=== PATIENT | female | born 1960 | race Caucasian/White ===

== ENCOUNTER 2018-02-13 12:10 | Emergency (ER) | payer OTHER ==
[2018-02-13] MEDS ORDERED: TORAdol 30 mg Injection IM ONE (13:04)
--- NOTE | 2018-02-13 13:05 | ERPHSYRPT ---
- History of Present Illness Time Seen by Provider: 02/13/18 12:59 Source: patient, family Exam Limitations: no limitations Patient Subjective Stated Complaint: PT states "I fell off the porch and my back hurts a little. I am legally blind and have ." Triage Nursing Assessment: Pt alert and oriented X 3, skin pwd. Pt ambulates with assistance, pt has tremors, uses hands to determine location. TP able to speak in clear full sentences. no apparent respiratory distress. Physician History: The patient is a 57-year-old female with her family complaining that she was using her mother's blood pressure cuff this morning and saw that her blood pressure was 0/30. Then later this morning she fell off a porch that was less than a foot off the ground. She called her primary medical doctor and went into see him. She was late for the appointment. After telling the medical office what was wrong, it was recommended she come to the ER. She has some low back pain now that is worse than usual. He did not hurt when she fell she has a past medical history of ankylosing spondylitis of the spine, hypertension, hypothyroidism, meningioma that was successfully resected, and blindness. Occurred: just prior to arrival Reason for Fall: lost balance, fell from height Injuries/Pain Location: no injury Loss of Consciousness: no loss of consciousness Severity of Pain-Max: mild Severity of Pain-Current: mild Modifying Factors: Improves With: nothing Associated Symptoms (Fall): denies symptoms Allergies/Adverse Reactions: carbamazepine [From Tegretol] Allergy (Verified 04/14/15 00:30) Itching Sulfa (Sulfonamide Antibiotics) Allergy (Verified 04/14/15 00:30) Itching Home Medications: Atenolol 25 mg PO DAILY 01/24/14 [History] Duloxetine HCl 60 mg PO DAILY 01/24/14 [History] Levothyroxine Sodium 50 Mcg [Synthroid 50 Mcg] 50 mcg PO DAILY 01/24/14 [ History] Oxycodone / APAP 10/325 mg [Oxycodone-Acetaminophen 10-325] 1 tab PO Q4- 6HPRN 01/24/14 [History] Hx Tetanus, Diphtheria Vaccination/Date Given: No Hx Influenza Vaccination/Date Given: No Hx Pneumococcal Vaccination/Date Given: No Immunizations Up to Date: Yes - Review of Systems Constitutional: No Fever, No Chills Eyes: No Symptoms Ears, Nose, & Throat: No Symptoms Respiratory: No Cough, No Dyspnea Cardiac: No Chest Pain, No Edema, No Syncope Abdominal/Gastrointestinal: No Abdominal Pain, No Nausea, No Vomiting, No Diarrhea Genitourinary Symptoms: No Dysuria Musculoskeletal: Back Pain, Fall Skin: No Rash Neurological: No Dizziness, No Focal Weakness, No Sensory Changes Psychological: No Symptoms Endocrine: No Symptoms Hematologic/Lymphatic: No Symptoms Immunological/Allergic: No Symptoms All Other Systems: Reviewed and Negative - Past Medical History Pertinent Past Medical History: Yes Neurological History: Seizures, Other Cardiac History: Arrhythmia Endocrine Medical History: Hypothyroidism Musculoskeletal History: Fibromyalgia, Other Psycho-Social History: Depression Other Medical History: BRAIN TUMOR, - Past Surgical History Past Surgical History: Yes Neuro Surgical History: Other Female Surgical History: Section Other Surgical History: BRAIN TUMOR REMOVED, TONSILS. - Social History Smoking Status: Light tobacco smoker How long have you smoked: couple yea Exposure to second hand smoke: No Drug Use: none Patient Lives Alone: No - Female History Hx Last Menstrual Period: no more Hx Now: No - Nursing Vital Signs Nursing Vital Signs: Initial Vital Signs Temperature 98.9 F 02/13/18 12:15 Pulse Rate 75 02/13/18 12:15 Respiratory Rate 16 02/13/18 12:15 Blood Pressure 120/84 02/13/18 12:15 O2 Sat by Pulse Oximetry 95 02/13/18 12:15 Pain Scale Pain Intensity 2 - Jenelle Coma Score Best Eye Response ([place]): (4) open spontaneously Best Verbal Response ([place]): (5) oriented Best Motor Response ([place]): (6) obeys commands [place] Total: 15 - Physical Exam General Appearance: no apparent distress, alert Head Injury: no evidence of injury Eye Exam: PERRL/EOMI ENT Exam: airway nml Neck Exam: normal inspection, No tenderness Respiratory/Chest Exam: normal breath sounds, No chest tenderness, No respiratory distress Cardiovascular Exam: normal heart sounds, regular rate/rhythm Gastrointestinal Exam: soft, No tenderness, No distention, No guarding, No ecchymosis Rectal Exam: not done Back Exam: vertebral tenderness (lumbar) Extremity Exam: normal inspection, normal range of motion, pelvis stable, No deformities Neurologic Exam: alert, oriented x 3, cooperative, sensation nml, No motor deficits Skin Exam: normal color, warm, dry SpO2 Interpretation: normal SpO2: 95 Oxygen Delivery: Room Air - Progress Progress: improved Counseled pt/family regarding: diagnosis - Departure Time of Disposition: 13:03 Departure Disposition: Home Clinical Impression: Fall, Low back pain Condition: Stable Critical Care Time: No Referrals: KIM GILL [Primary Care Provider] - Additional Instructions: You had a fall from you porch this morning. You know have an exacerbation of your chronic back pain. You were given Toradol 60 mg IM in the ER. Your blood pressure was excellent in the ER. Your blood pressure is 120/84. Follow-up with your primary medical doctor as needed.
[2018-02-13] MEDS ORDERED: TORAdol 30 mg Injection ONE (13:15)
[2018-02-13 13:39] VITALS: BP 110/72; PULSE 66; O2SAT 94
== END 2018-02-13 13:39 | disposition home or self-care (01) ==
LOC: ED 12:10
DX: M54.5 Low back pain (principal); W17.89XA Other fall from one level to another, initial encounter; Y92.008 Other place in unspecified non-institutional (private) residence as the place of occurrence of the external cause; Z79.899 Other long term (current) drug therapy
CPT/HCPCS: 96372; 99283; J1885

== ENCOUNTER 2021-07-19 13:31 | Inpatient (IN) | payer OTHER, MEDICARE ==
[2021-07-19] MEDS ORDERED: Hydromorphone 1 mg/ml Injection IV ONE (14:12)
[2021-07-19] MEDS ORDERED: Hydromorphone 1 mg/ml Injection ONE (14:13)
[2021-07-19 14:29] LABS: Absolute Neutrophil Ct (ANC) 7.04 (1.4-6.9); Basophil (Absolute #) 0.02 (0-0.4); Eosinophil % 0.4 % (0.00-5.0); Eosinophil (Absolute #) 0.05 (0-0.5); Hematocrit 41.9 % (35-47); Hemoglobin 12.9 gm/dl (12.0-16.0); Lymphocyte (Absolute #) 4.28 (1.0-4.6); Lymphocytes % 35.4 % (24.0-44.0); Mean Corpuscular Hemoglobin 32.3 pg (26-32); Mean Corpuscular Hgb Concent. 30.8 g/dl (32-36); Mean Platelet Volume 10.9 fl (7.5-11.0); Monocyte (Absolute #) 0.71 (0.0-1.3); Monocytes % 5.9 % (0.0-12.0); Neutrophil % 58.1 % (36.0-66.0); Platelet Count 243 K/mm3 (150-450); Red Blood Count 3.99 M/mm3 (4.1-5.4); Red Cell Distribution Width 12.2 % (11.5-14.0); White Blood Count 12.1 K/mm3 (4.0-10.5)
[2021-07-19 14:36] LABS: INR 1.2 (0.8-3.0); PROTIME 14.2 SECONDS (9.4-12.5)
[2021-07-19 14:42] LABS: ALBUMIN 3.5 g/dL (3.5-5.0); ALKALINE PHOSPHATASE 82 U/L (38-126); AMYLASE 40 U/L (30-110); ANION GAP 10.6 MEQ/L (5-15); BLOOD UREA NITROGEN 13 mg/dL (7-17); CHLORIDE 95 mmol/L (98-107); Calcium 9.4 mg/dL (8.4-10.2); Carbon Dioxide 36 mmol/L (22-30); Creatinine 1 0.63 mg/dL (0.52-1.04); EST GLOMERULAR FILTRATION RATE > 60.0 ML/MIN; Glucose 89 mg/dL (74-106); LIPASE 21 U/L (23-300); Potassium 4.5 mmol/L (3.5-5.1); SGOT/AST 15 U/L (14-36); SODIUM 137 mmol/L (137-145); Total Protein 8.2 g/dL (6.3-8.2)
[2021-07-19 14:48] LABS: SGPT/ALT 4 U/L (0-35)
--- NOTE | 2021-07-19 14:55 | XRAY ---
Indication: General pain. Comparison: February 12, 2011. Portable chest again demonstrates mild bibasilar discoid atelectasis/scarring, left base calcified granulomas, and right hemidiaphragm elevation. Remaining heart and upper lungs unremarkable. Bony thorax intact again with mild degenerative changes. Impression: Nonacute chest with chronic features.
--- NOTE | 2021-07-19 15:04 | ERPHSYRPT ---
- History of Present Illness Time Seen by Provider: 07/19/21 13:45 Source: family Exam Limitations: clinical condition, physical impairment Patient Subjective Stated Complaint: Pt daughter states "She lives with my father in law but he works allot and I came to visit and she looked really bad and I tried to get her into the doctor but she could not move without yelling a nd so I brought her here. She needs home health or alf or something." Triage Nursing Assessment: Pt presented alert and orietned x 3, skin pwd Pt blind, pt yells and screams when she is moved. Pt able to move all extremitites. Pt has parkinsons and has involuntary arm and leg movments. Physician History: Patient is a 60-year-old female who has had Parkinson symptoms for several years but much worse over the past 6 months or so. The daughter who does not live here saw her several months ago and when she saw her for Thanksgiving was shocked at the deterioration. The patient can no longer walk she cannot feed herself she is left alone at home frequently. The daughter had arranged a an appointment with Dr. Lew but when she arrived at his office she was unable to get the patient out of the car. The patient is rigid except for a resting tremor and screams with in pain with any movement. The patient was on Sinemet until it was stopped in May because of hallucinations. The the daughter does report that she was hallucinating and cognitive function was very poor prior to stopping the Sinemet. The patient is essentially blind. Timing/Duration: week(s) Severity: severe Allergies/Adverse Reactions: carbamazepine [From Tegretol] Allergy (Verified 04/14/15 00:30) Itching Sulfa (Sulfonamide Antibiotics) Allergy (Verified 04/14/15 00:30) Itching Home Medications: Duloxetine HCl 60 mg PO DAILY 01/24/14 [History] Levothyroxine Sodium 50 Mcg [Synthroid 50 Mcg] 50 mcg PO DAILY 01/24/14 [History] Diclofenac Sodium [Diclofenac Sodium ER] 75 mg PO BID 07/19/21 [History] Divalproex Sodium [Depakote ER] 500 mg PO TID 07/19/21 [History] Duloxetine HCl [Cymbalta] 60 mg PO DAILY 07/19/21 [History] Gabapentin 600 mg PO TID 07/19/21 [History] Propranolol HCl 40 mg PO BID 07/19/21 [History] levETIRAcetam [Levetiracetam ER] 750 mg PO BID 07/19/21 [History] Hx Tetanus, Diphtheria Vaccination/Date Given: No Hx Influenza Vaccination/Date Given: No Hx Pneumococcal Vaccination/Date Given: No Immunizations Up to Date: Yes Travel Risk - International Travel Have you traveled outside of the country in past 3 weeks: No - Coronavirus Screening Are you exhibiting any of the following symptoms?: No Close contact with a COVID-19 positive Pt in past 14-21 Days: No - Vaccine Status Have you recieved a Covid-19 vaccination: No - Past Medical History Pertinent Past Medical History: Yes Neurological History: Seizures, Other Cardiac History: Arrhythmia Endocrine Medical History: Hypothyroidism Musculoskeletal History: Fibromyalgia, Other Psycho-Social History: Depression Other Medical History: BRAIN TUMOR, - Past Surgical History Past Surgical History: Yes Neuro Surgical History: Other Female Surgical History: Section Other Surgical History: BRAIN TUMOR REMOVED, TONSILS. - Social History Smoking Status: Light tobacco smoker How long have you smoked: couple yea Exposure to second hand smoke: No Drug Use: none Patient Lives Alone: No - Nursing Vital Signs Nursing Vital Signs: Initial Vital Signs Temperature 97.2 F 07/19/21 13:32 Pulse Rate 60 07/19/21 13:32 Respiratory Rate 20 07/19/21 13:32 O2 Sat by Pulse Oximetry 95 07/19/21 13:32 Pain Scale Pain Intensity 4 - Physical Exam General Appearance: moderate distress Eye Exam: PERRL/EOMI, eyes nml inspection Ears, Nose, Throat Exam: normal ENT inspection, TMs normal, pharynx normal, moist mucous membranes Neck Exam: limited range of motion, No full range of motion Respiratory Exam: normal breath sounds, airway intact Cardiovascular Exam: regular rate/rhythm, normal heart sounds Gastrointestinal/Abdomen Exam: soft, normal bowel sounds, tenderness, No guarding, No rebound Back Exam: other (Pain with any attempts to move her even to set her up for a chest x-ray) Extremity Exam: limited range of motion, other (Patient is essentially rigid any movement in the elbows there is palpable cogwheel rigidity) Neurologic Exam: motor deficits (Marked muscle rigidity), confusion, slurred speech, No nml station & gait SpO2: 98 - Course Nursing assessment & vital signs reviewed: Yes - Radiology Exams Chest X-ray Interpretation: Reviewed by me Ordered Tests: Active Orders 24 hr Category Date Time Status EKG-ER Only STAT Care 07/19/21 13:50 Active IV Insertion STAT Care 07/19/21 13:50 Active NPO (ED) STAT Care 07/19/21 13:51 Active CHEST 1 VIEW (PORTABLE) Stat Exams 07/19/21 13:51 Completed AMYLASE Stat Lab 07/19/21 14:15 Completed BLOOD CULTURE Stat Lab 07/19/21 14:20 Received CBC W DIFF Stat Lab 07/19/21 14:15 Completed CMP Stat Lab 07/19/21 14:15 Completed CULTURE,URINE Stat Lab 07/19/21 13:53 Ordered LIPASE Stat Lab 07/19/21 14:15 Completed Lactic Acid Stat Lab 07/19/21 14:28 Completed PROTIME WITH INR Stat Lab 07/19/21 14:15 Completed TROPONIN Q3H Lab 07/19/21 14:15 Completed TROPONIN Q3H Lab 07/19/21 17:00 Ordered TROPONIN Q3H Lab 07/19/21 20:00 Ordered TROPONIN Q3H Lab 07/19/21 23:00 Ordered TROPONIN Q3H Lab 07/20/21 02:00 Ordered UA W/RFX UR CULTURE Stat Lab 07/19/21 13:51 Ordered Medication Summary Discontinued Medications Generic Name Dose Route Start Last Admin Trade Name Freq PRN Reason Stop Dose Admin Hydromorphone HCl 1 mg 07/19/21 14:12 07/19/21 14:13 Hydromorphone 1 Mg/1ml Inj 1 Mg/Ml Syringe IV 07/19/21 14:13 1 mg STAT ONE Administration Hydromorphone HCl Confirm 07/19/21 14:13 Hydromorphone 1 Mg/1ml Inj 1 Mg/Ml Syringe Administered 07/19/21 14:14 Dose 1 mg .ROUTE .STK-MED ONE Lab/Rad Data: Laboratory Result Diagrams 07/19/21 14:15 07/19/21 14:15 Laboratory Results 07/19/21 07/19/21 07/19/21 Range/Units 14:28 14:15 14:15 WBC (4.0-10.5) K/mm3 RBC (4.1-5.4) M/mm3 Hgb (12.0-16.0) gm/dl Hct (35-47) % MCV (78-100) fl MCH (26-32) pg MCHC (32-36) g/dl RDW (11.5-14.0) % Plt Count (150-450) K/mm3 MPV (7.5-11.0) fl Gran % (36.0-66.0) % Eos # (Auto) (0-0.5) Absolute Lymphs (auto) (1.0-4.6) Absolute Monos (auto) (0.0-1.3) Lymphocytes % (24.0-44.0) % Monocytes % (0.0-12.0) % Eosinophils % (0.00-5.0) % Basophils % (0.0-0.4) % Absolute Granulocytes (1.4-6.9) Basophils # (0-0.4) PT 14.2 H (9.4-12.5) SECONDS INR 1.20 (0.8-3.0) Sodium (137-145) mmol/L Potassium (3.5-5.1) mmol/L Chloride (98-107) mmol/L Carbon Dioxide (22-30) mmol/L Anion Gap (5-15) MEQ/L BUN (7-17) mg/dL Creatinine (0.52-1.04) mg/dL Estimated GFR ML/MIN Glucose (74-106) mg/dL Lactic Acid 1.7 (0.4-2.0) Calcium (8.4-10.2) mg/dL Total Bilirubin (0.2-1.3) mg/dL AST (14-36) U/L ALT (0-35) U/L Alkaline Phosphatase (38-126) U/L Troponin I < 0.012 (0.000-0.034) ng/mL Serum Total Protein (6.3-8.2) g/dL Albumin (3.5-5.0) g/dL Amylase (30-110) U/L Lipase (23-300) U/L 07/19/21 07/19/21 Range/Units 14:15 14:15 WBC 12.1 H (4.0-10.5) K/mm3 RBC 3.99 L (4.1-5.4) M/mm3 Hgb 12.9 (12.0-16.0) gm/dl Hct 41.9 (35-47) % MCV 105.0 H (78-100) fl MCH 32.3 H (26-32) pg MCHC 30.8 L (32-36) g/dl RDW 12.2 (11.5-14.0) % Plt Count 243 (150-450) K/mm3 MPV 10.9 (7.5-11.0) fl Gran % 58.1 (36.0-66.0) % Eos # (Auto) 0.05 (0-0.5) Absolute Lymphs (auto) 4.28 (1.0-4.6) Absolute Monos (auto) 0.71 (0.0-1.3) Lymphocytes % 35.4 (24.0-44.0) % Monocytes % 5.9 (0.0-12.0) % Eosinophils % 0.4 (0.00-5.0) % Basophils % 0.2 (0.0-0.4) % Absolute Granulocytes 7.04 H (1.4-6.9) Basophils # 0.02 (0-0.4) PT (9.4-12.5) SECONDS INR (0.8-3.0) Sodium 137 (137-145) mmol/L Potassium 4.5 (3.5-5.1) mmol/L Chloride 95 L (98-107) mmol/L Carbon Dioxide 36 H (22-30) mmol/L Anion Gap 10.6 (5-15) MEQ/L BUN 13 (7-17) mg/dL Creatinine 0.63 (0.52-1.04) mg/dL Estimated GFR > 60.0 ML/MIN Glucose 89 (74-106) mg/dL Lactic Acid (0.4-2.0) Calcium 9.4 (8.4-10.2) mg/dL Total Bilirubin 0.90 (0.2-1.3) mg/dL AST 15 (14-36) U/L ALT 4 (0-35) U/L Alkaline Phosphatase 82 (38-126) U/L Troponin I (0.000-0.034) ng/mL Serum Total Protein 8.2 (6.3-8.2) g/dL Albumin 3.5 (3.5-5.0) g/dL Amylase 40 (30-110) U/L Lipase 21 L (23-300) U/L - Progress Progress: unchanged Discussed with DrCurt: Rony Will see patient in: hospital (observation) - Departure Departure Disposition: Observation Clinical Impression: Anti-Parkinsonism drug causing adverse effect in therapeutic use, Parkinsonism Condition: Fair Critical Care Time: No Referrals: ANURADHA VIEIRA PRACTICE COORDINATOR [Primary Care Provider] - Follow up/PCP as directed
[2021-07-19 16:12] LABS: Appearance SLIGHTLY CLOUDY (CLEAR); Bacteria MANY /HPF (NEGATIVE); Bilirubin SMALL (NEGATIVE); Blood NEGATIVE Ery/ul (0-5); Epithelial Cells RARE /HPF (FEW); Glucose NEGATIVE (NEGATIVE); Ketones TRACE (NEGATIVE); Leukocyte Esterase SMALL (NEGATIVE); Mucus MANY /HPF (NEGATIVE); Nitrite POSITIVE (NEGATIVE); Protein,Urine Dip 100 (Negative); Specific Gravity 1.026 (1.005-1.025); Urobilinogen 4 mg/dL (0-1)
[2021-07-19 16:43] LABS: INFLUENZA A NEGATIVE (NEGATIVE); INFLUENZA B NEGATIVE (NEGATIVE); RESPIRATORY SYNCTIAL VIRUS NEGATIVE (Negative); SARS-CoV-2 Xpert Express NEGATIVE (NEGATIVE)
[2021-07-19] MEDS ORDERED: ROCEPHIN 1 Gm-D5w 50 ml Bag** 1 G/50 ML IVPB IV STA (17:47)
[2021-07-19] MEDS ORDERED: ROCEPHIN 1 Gm-D5w 50 ml Bag** 1 G/50 ML IVPB IV ONE (17:49)
[2021-07-19] MEDS: Hydromorphone 1 mg/ml Injection IV PRN ×2 (18:29→22:37)
[2021-07-19] MEDS: Sodium Chloride 0.9% 1000 ML 1,000 ML IV SCH (21:51)
[2021-07-19] MEDS: NEURONTIN 300 MG PO SCH (22:34)
[2021-07-19] MEDS: Inderal 20 MG PO SCH (22:34)
[2021-07-19] MEDS: Depakote EXTENDED RELEASE 250 MG PO SCH (22:34)
[2021-07-19] MEDS: KEPPRA 500 MG PO SCH (22:35)
[2021-07-20] MEDS: Sodium Chloride 0.9% 1000 ML 1,000 ML IV SCH ×4 (02:50→21:02)
[2021-07-20] MEDS ORDERED: SYNTHROID 100 MCG ONE (03:25)
[2021-07-20] MEDS: Hydromorphone 1 mg/ml Injection IV PRN (05:15)
[2021-07-20] MEDS ORDERED: SYNTHROID 100 MCG PO SCH (07:00)
[2021-07-20 07:52] LABS: Hematocrit 35.4 % (35-47); Hemoglobin 10.6 gm/dl (12.0-16.0); Mean Corpuscular Hemoglobin 31.7 pg (26-32); Mean Corpuscular Hgb Concent. 29.9 g/dl (32-36); Mean Platelet Volume 10.9 fl (7.5-11.0); Platelet Count 207 K/mm3 (150-450); Red Blood Count 3.34 M/mm3 (4.1-5.4); Red Cell Distribution Width 12.4 % (11.5-14.0); White Blood Count 10.9 K/mm3 (4.0-10.5)
[2021-07-20 08:00] LABS: ALBUMIN 2.9 g/dL (3.5-5.0); ALKALINE PHOSPHATASE 67 U/L (38-126); BLOOD UREA NITROGEN 11 mg/dL (7-17); CHLORIDE 100 mmol/L (98-107); Carbon Dioxide 32 mmol/L (22-30); EST GLOMERULAR FILTRATION RATE > 60.0 ML/MIN; Glucose 84 mg/dL (74-106); Potassium 3.5 mmol/L (3.5-5.1); SGOT/AST 14 U/L (14-36); SODIUM 136 mmol/L (137-145); Total Protein 6.8 g/dL (6.3-8.2)
[2021-07-20] MEDS ORDERED: Sodium Chloride 0.9% 500 ML 500 ML IV ONE (08:40)
[2021-07-20] MEDS: Depakote EXTENDED RELEASE 250 MG PO SCH (08:50)
[2021-07-20] MEDS: KEPPRA 500 MG PO SCH (08:50)
[2021-07-20] MEDS: Inderal 20 MG PO SCH (08:50)
[2021-07-20] MEDS: NEURONTIN 300 MG PO SCH (08:50)
[2021-07-20 09:34] LABS: SGPT/ALT < 4 U/L (0-35)
[2021-07-20] MEDS: Levofloxacin 500MG/100ML D5W 500 MG/100 ML BAG IV SCH (09:38)
[2021-07-20] MEDS ORDERED: Cymbalta 30 MG Capsule PO SCH (10:00)
[2021-07-20] MEDS ORDERED: ROCEPHIN 1 Gm-D5w 50 ml Bag** 1 G/50 ML IVPB IV SCH (10:00)
[2021-07-21] MEDS: Sodium Chloride 0.9% 1000 ML 1,000 ML IV SCH ×2 (06:38→17:43)
[2021-07-21] MEDS: Levofloxacin 500MG/100ML D5W 500 MG/100 ML BAG IV SCH (09:24)
[2021-07-21] MEDS: KEPPRA 500 MG PO SCH ×2 (11:24→22:20)
--- NOTE | 2021-07-21 12:05 | PCM.NOTE ---
Date and Time: 07/21/21 1203 Subjective Assessment: Neurology consult appreciated. will follow recommendation - Review of Systems Constitutional: No Fever, No Chills Eyes: No Symptoms Ears, Nose, & Throat: No Symptoms Respiratory: No Cough, No Short Of Breath Cardiac: No Chest Pain, No Edema, No Syncope Abdominal/Gastrointestinal: No Abdominal Pain, No Nausea, No Vomiting, No Diarrhea Genitourinary Symptoms: No Dysuria Musculoskeletal: No Back Pain, No Neck Pain Skin: No Rash Neurological: Tremors, No Dizziness, No Focal Weakness, No Sensory Changes Psychological: Anxiety, Hallucinations Endocrine: No Symptoms Hematologic/Lymphatic: No Symptoms Immunological/Allergic: No Symptoms Objective Exam General Appearance: mild distress, alert Neurologic Exam: alert, oriented x 3, cooperative, normal mood/affect, sensation nml, No motor deficits Skin Exam: normal color, warm, dry Wound Assessment: Skin/Wound Assessment Wound/Incision Assessment Start: 07/19/21 18:52 Text: Status: Active Freq: Q6H Protocol: Document 07/21/21 07:52 (Rec: 07/21/21 08:05 [id number]) Wound/Incision Assessment Posterior Buttock Wound Assessment Shift Assessment Wound Type shearing noted to left buttock Drainage Amount None Comment barrier cream PRN Wound Photo Photo Taken Yes Comment: see chart Eye Exam: PERRL, EOMI, eyes nml inspection Ears, Nose, Throat Exam: normal ENT inspection, pharynx normal, moist mucous membranes Neck Exam: normal inspection, non-tender, supple, full range of motion Respiratory Exam: normal breath sounds, lungs clear, No respiratory distress Cardiovascular Exam: regular rate/rhythm, normal heart sounds Gastrointestinal/Abdomen Exam: soft, No tenderness, No mass Extremity Exam: normal inspection, normal range of motion Back Exam: normal inspection, normal range of motion, No CVA tenderness, No vertebral tenderness Pelvic Exam: deferred Rectal Exam: deferred OBJECTIVE DATA Vital Signs: Vital Signs - 24 hr Temp Pulse Resp BP Pulse Ox 07/21/21 08:00 97.7 F 86 18 127/67 92 L 07/21/21 04:15 98.6 F 88 18 137/66 92 L 07/20/21 23:39 100.2 F 91 H 19 133/54 94 L 07/20/21 20:54 91 L 07/20/21 20:00 97.9 F 85 17 90/51 93 L 07/20/21 16:00 97.5 F 126/100 81 L Pain Assessment - Last Documented Pain Intensity 0 Pain Scale Used 0-10 Pain Scale Intake and Output: Intake & Output 07/19/21 07/20/21 07/21/21 07/22/21 11:59 11:59 11:59 11:59 Intake Total 2170 4166 Output Total 50 1800 Balance 2120 2366 Weight 160 kg 67.2 kg Lab Results: Lab Results-Last 24 Hours 07/20/21 07/20/21 07/20/21 Range/Units 13:14 17:11 21:49 POC Glucometer 74 72 L 95 (74 to 106) mg/dL 07/21/21 07/21/21 Range/Units 07:06 11:47 POC Glucometer 88 94 (74 to 106) mg/dL Radiology Exams: Radiology Procedures Category Date Time Status CHEST 1 VIEW (PORTABLE) Stat Exams 07/19/21 13:51 Completed Multi-Disciplinary Progress Notes: Multi-Disciplinary Progress Notes 07/20/21 13:55 Case Management Note by Jane Whiteside HAD LONG DISCUSSION IN ER WITH DAUGHTER, ENDER CORRAL, 07/19/21. SHE REPORTED PATIENT'S TAKES CARE OF PATIENT ADONIS BUT HE HAS TO WORK DURING THE DAY AND SHE IS NO LONGER ABLE TO CARE FOR HERSELF. ENDER REPORTED SHE FELT LIKE THIS WAS JUST DUE TO PROGRESSION OF PATIENT'S PARKINSON. OPTIONS FOR CARE DISCUSSED. NOTIFIED THAT D/T PATIENT UNABLE TO PARTICIPATE IN THERAPY AND WOULD BE CONSIDERED MORE GROUP HOME CARE THAT NH PLACEMENT WOULD BE PRIVATE PAY. WE ALSO DISCUSSED HHC VS HOSPICE. ENDER WAS MOST INTERESTED IN HOSPICE AT HOME WITH PRIVATE PAY [facility] WHILE IS AT WORK. TO GET MORE INFORMATION ELIER FROM [facility] GIVEN ENDERS NUMBER SO THEY CAN DISCUSS WHAT HOSPICE COULD PROVIDE AND HELP WITH ADDITIONAL RESOURCES. ENEDR UNDERSTOOD THAT TALKING WITH ELIER WAS ESSENTIALLY JUST FOR INFORMATION AND EVEN AFTER TALKING WITH ELIER FAMILY HAS COMPLETE PROVIDER PREFERENCE CHOICE. ENDER NOTED THAT SHE KNOWS HER STEP FATHER, PATIENT'S , WOULD NEED TO MAKE THOSE DECISIONS BUT FEELS HE WOULD WANT HER GUIDANCE AND ASSISTANCE. S/W PATIENT'S THIS AM. TELE NEURO CONSULTED THIS AM PHYSICIN FEELS A MEDICATION COULD BE CONTRIBUTING TO PATIENT'S CONDITION. FAMILY HAS A MTG WITH [facility] LATER THIS AFTERNOON TO DISCUSS IF HOSPICE IS WHAT THE FAMILY WOULD LIKE. PATIENT WILL NEED [facility] SET UP PRIOR TO DC. WILL REASSESS PLAN FOR DC ON FRIDAY AFTER NEURO CONSULT. WILL SEND OFFICIAL ORDER TO HOSPICE OF FAMILY CHOICE AT THAT TIME IF THAT CONTINUES TO BE THE PLAN Initialized on 07/20/21 13:55 - END OF NOTE Assessment/Plan (1) Anti-Parkinsonism drug causing adverse effect in therapeutic use Current Visit: Yes Status: Acute Qualifiers: Encounter type: subsequent encounter Qualified Code(s): T42.8X5D - Adverse effect of antiparkinsonism drugs and other central muscle-tone depressants, subsequent encounter Code(s): T42.8X5A - ADVERSE EFFECT OF ANTIPARKNS DRUG/CENTR MUSC-TONE DEPR, INIT (2) Parkinsonism Current Visit: Yes Status: Acute Qualifiers: Parkinsonism type: Parkinson's disease Qualified Code(s): G20 - Parkinson's disease Code(s): G20 - PARKINSON'S DISEASE
--- NOTE | 2021-07-22 08:29 | PCM.NOTE ---
Date and Time: 07/22/21827 Subjective Assessment: doing better - Review of Systems Constitutional: No Fever, No Chills Eyes: No Symptoms Ears, Nose, & Throat: No Symptoms Respiratory: No Cough, No Short Of Breath Cardiac: No Chest Pain, No Edema, No Syncope Abdominal/Gastrointestinal: No Abdominal Pain, No Nausea, No Vomiting, No Diarrhea Genitourinary Symptoms: No Dysuria Musculoskeletal: No Back Pain, No Neck Pain Skin: No Rash Neurological: Tremors, No Dizziness, No Focal Weakness, No Sensory Changes Psychological: No Symptoms Endocrine: No Symptoms Hematologic/Lymphatic: No Symptoms Immunological/Allergic: No Symptoms Objective Exam General Appearance: no apparent distress, alert Neurologic Exam: alert, oriented x 3, cooperative, normal mood/affect, nml cerebellar function, sensation nml, No motor deficits Skin Exam: normal color, warm, dry Wound Assessment: Skin/Wound Assessment Wound/Incision Assessment Start: 07/19/21 18:52 Text: Status: Active Freq: Q6H Protocol: Document 07/22/21 02:00 PATRICIA (Rec: 07/22/21 03:56 RG [id number]) Wound/Incision Assessment Right Medial Back Wound Assessment Shift Assessment Wound Type Skin Tear Wound Stage Non Pressure Wound Drainage Amount None Drainage Odor None/Absent Wound Bed Greatest Portion Red (Granulation) Comment skin shear to medial right back, barrier cream applied Posterior Buttock Wound Assessment Shift Assessment Wound Type shear area r hip area. Drainage Amount None Drainage Odor None/Absent General Appearance Open to air Comment barrier cream PRN Wound Photo Photo Taken Yes Comment: see chart Eye Exam: PERRL, EOMI, eyes nml inspection Ears, Nose, Throat Exam: normal ENT inspection, pharynx normal, moist mucous membranes Neck Exam: normal inspection, non-tender, supple, full range of motion Respiratory Exam: normal breath sounds, lungs clear, No respiratory distress Cardiovascular Exam: regular rate/rhythm, normal heart sounds Gastrointestinal/Abdomen Exam: soft, No tenderness, No mass Extremity Exam: normal inspection, normal range of motion Back Exam: normal inspection, normal range of motion, No CVA tenderness, No vertebral tenderness Pelvic Exam: deferred Rectal Exam: deferred OBJECTIVE DATA Vital Signs: Vital Signs - 24 hr Temp Pulse Resp BP Pulse Ox 07/22/21 04:15 98.0 F 76 18 127/57 94 L 07/22/21 00:00 98.8 F 84 20 136/63 93 L 07/21/21 20:00 99.5 F 87 16 124/84 94 L 07/21/21 18:27 92 L 07/21/21 16:00 98.6 F 105 H 18 127/66 94 L 07/21/21 14:27 92 L 07/21/21 12:00 99.3 F 99 H 20 128/66 92 L Pain Assessment - Last Documented Pain Intensity 0 Pain Scale Used 0-10 Pain Scale Intake and Output: Intake & Output 07/19/21 07/20/21 07/21/21 07/22/21 11:59 11:59 11:59 11:59 Intake Total 2170 4166 2500 Output Total 50 1800 1625 Balance 2120 2366 875 Weight 160 kg 67.2 kg 67.1 kg Lab Results: Lab Results-Last 24 Hours 07/21/21 Range/Units 11:47 POC Glucometer 94 (74 to 106) mg/dL Assessment/Plan (1) Anti-Parkinsonism drug causing adverse effect in therapeutic use Current Visit: Yes Status: Acute Qualifiers: Encounter type: subsequent encounter Qualified Code(s): T42.8X5D - Adverse effect of antiparkinsonism drugs and other central muscle-tone depressants, subsequent encounter Code(s): T42.8X5A - ADVERSE EFFECT OF ANTIPARKNS DRUG/CENTR MUSC-TONE DEPR, INIT (2) Parkinsonism Current Visit: Yes Status: Acute Qualifiers: Parkinsonism type: Parkinson's disease Qualified Code(s): G20 - Parkinson's disease Code(s): G20 - PARKINSON'S DISEASE
[2021-07-22 09:08] VITALS: BP 112/66; PULSE 74; O2SAT 93
[2021-07-22] MEDS: Levofloxacin 500MG/100ML D5W 500 MG/100 ML BAG IV SCH (09:17)
[2021-07-22] MEDS: KEPPRA 500 MG PO SCH (09:17)
--- NOTE | 2021-07-22 15:20 | PCM.DS ---
Discharge Summary Date of Admission: 07/20/21 07:00 Admitting Physician: JERAMY MONTALVO Consults: Consults on Case 07/20/21 08:34 Consult Neurology ROUTINE Primary Care Provider: ANURADHA VIEIRA Allergies Allergies carbamazepine [From Tegretol] Allergy (Verified 04/14/15 00:30) Itching Sulfa (Sulfonamide Antibiotics) Allergy (Verified 04/14/15 00:30) Itching Hospital Summary - Hospital Course Hospital Course: Chief Complaint Diagnosis parkinsons Allergies Allergy/AdvReac Type Severity Reaction Status Date / Time carbamazepine [From Tegretol] Allergy Itching Verified 04/14/15 00:30 Sulfa (Sulfonamide Allergy Itching Verified 04/14/15 00:30 Antibiotics) Vital Signs (Last 24 hours) Temp Pulse Resp BP Pulse Ox 07/22/21 08:00 98.4 F 74 16 112/66 93 L 07/22/21 04:15 98.0 F 76 18 127/57 94 L 07/22/21 00:00 98.8 F 84 20 136/63 93 L 07/21/21 20:00 99.5 F 87 16 124/84 94 L 07/21/21 18:27 92 L 07/21/21 16:00 98.6 F 105 H 18 127/66 94 L Home Medications Medication Instructions Recorded Confirmed Last Taken Type Cholecalciferol (Vitamin D3) 50 mcg PO DAILY 07/19/21 07/19/21 07/19/21 History [Vitamin D3] Diclofenac Sodium [Diclofenac 75 mg PO BID 07/19/21 07/19/21 07/19/21 History Sodium ER] Divalproex Sodium [Depakote ER] 500 mg PO TID 07/19/21 07/19/21 07/19/21 History Duloxetine HCl [Cymbalta] 60 mg PO DAILY 07/19/21 07/19/21 07/19/21 History Propranolol HCl 40 mg PO BID 07/19/21 07/19/21 07/19/21 History levETIRAcetam [Levetiracetam ER] 750 mg PO BID 07/19/21 07/19/21 07/19/21 Hi story Levofloxacin [Levofloxacin 250 mg PO DAILY 5 Days #5 tab 07/22/21 Unknown Rx 250MG Tablet] Current Medications Discontinued Medications Generic Name Dose Route Start Last Admin Trade Name Freq PRN Reason Stop Dose Admin Divalproex Sodium 500 mg 07/19/21 22:00 07/20/21 08:50 Divalproex Sodium 250 Mg Tab Extended Release PO 08/18/21 21:59 Not Given TID SALINA Duloxetine HCl 60 mg 07/20/21 10:00 07/20/21 08:50 Duloxetine Hcl 30 Mg Cap PO 08/19/21 09:59 Not Given QAM SALINA Gabapentin 600 mg 07/19/21 22:00 07/20/21 08:50 Gabapentin 300 Mg Capsule PO 08/18/21 21:59 Not Given TID SALINA Hydromorphone HCl 1 mg 07/19/21 14:12 07/19/21 14:13 Hydromorphone 1 Mg/1ml Inj 1 Mg/Ml Syringe IV 07/19/21 14:13 1 mg STAT ONE Administration Hydromorphone HCl Confirm 07/19/21 14:13 Hydromorphone 1 Mg/1ml Inj 1 Mg/Ml Syringe Administered 07/19/21 14:14 Dose 1 mg .ROUTE .STK-MED ONE Hydromorphone HCl 1 mg 07/19/21 15:31 07/20/21 05:15 Hydromorphone 1 Mg/1ml Inj 1 Mg/Ml Syringe IV 07/24/21 15:30 1 mg Q4H PRN PRN Administration PAIN Sodium Chloride 1,000 mls @ 100 mls/hr 07/19/21 15:45 07/21/21 17:43 Sodium Chloride 0.9% 1000 Ml IV 08/18/21 15:44 100 mls/hr .Q10H SALINA Administration Ceftriaxone Sodium/Dextrose 1 g in 50 mls @ 100 mls/hr 07/19/21 17:47 07/19/21 17:50 Rocephin 1 Gm-D5w 50 Ml Bag IV 07/19/21 18:16 100 ml/hr STAT STA 100 mls/hr Administration Ceftriaxone Sodium/Dextrose 1 g in 50 mls @ 100 mls/hr 07/20/21 10:00 Rocephin 1 Gm-D5w 50 Ml Bag IV 07/23/21 09:59 Q24H10 SALINA Ceftriaxone Sodium/Dextrose Confirm 07/19/21 17:49 Rocephin 1 Gm-D5w 50 Ml Bag Administered 07/19/21 17:50 Dose 1 g in 50 mls @ ud IV .STK-MED ONE Sodium Chloride 500 mls @ 500 mls/hr 07/20/21 08:40 07/20/21 08:49 Sodium Chloride 0.9% 500 Ml IV 07/20/21 09:39 500 mls/hr .Q1H ONE Administration Levofloxacin/Dextrose 500 mg in 100 mls @ 100 mls/hr 07/20/21 10:00 07/22/21 09:17 Levofloxacin 500mg/100ml D5w IV 08/19/21 09:59 100 mls/hr Q24H10 SALINA Administration Levetiracetam 750 mg 07/19/21 22:00 07/20/21 08:50 Levetiracetam 500 Mg Tablet PO 08/18/21 21:59 Not Given BID SALINA Levetiracetam 500 mg 07/21/21 11:00 07/22/21 09:17 Levetiracetam 500 Mg Tablet PO 08/20/21 10:59 500 mg BID SALINA Administration Levothyroxine Sodium 100 mcg 07/20/21 07:00 07/20/21 06:10 Levothyroxine Sodium 100 Mcg Tablet PO 08/19/21 06:59 Not Given DAILY@0700 SALINA Levothyroxine Sodium Confirm 07/20/21 03:25 Levothyroxine Sodium 100 Mcg Tablet Administered 07/20/21 03:26 Dose 100 mcg .ROUTE .STK-MED ONE Propranolol HCl 40 mg 07/19/21 22:00 07/20/21 08:50 Propranolol Hcl 20 Mg Tablet PO 08/18/21 21:59 Not Given BID SALINA Intake & Output (Last 24 hours) 07/20/21 07/21/21 07/22/21 07/23/21 11:59 11:59 11:59 11:59 Intake Total 2170 4166 2740 Output Total 50 1800 2075 Balance 2120 2366 665 Weight 160 kg 67.2 kg 67.1 kg Orders (Last 24 hours) Category Date Time Status Discharge Routine Discharge 07/22/21 09:39 Ordered - Vitals & Intake/Output Vital Signs: Vital Signs Temperature 98.4 F 07/22/21 08:00 Pulse Rate 74 07/22/21 08:00 Respiratory Rate 16 07/22/21 08:00 Blood Pressure 112/66 07/22/21 08:00 O2 Sat by Pulse Oximetry 93 L 07/22/21 08:00 Intake & Output: Intake & Output 07/20/21 07/21/21 07/22/21 07/23/21 11:59 11:59 11:59 11:59 Intake Total 2170 4166 2740 Output Total 50 1800 2075 Balance 2120 2366 665 Weight 160 kg 67.2 kg 67.1 kg - Lab Result Diagrams: 07/20/21 07:15 07/20/21 07:15 Micro Results-Entire Visit: Microbiology 07/19/21 16:02 Urine Culture - Final Catherized Escherichia Coli 07/19/21 14:20 Blood Culture - Preliminary Blood NO GROWTH TO DATE 07/19/21 14:15 Blood Culture - Preliminary Blood NO GROWTH TO DATE - Procedures and Test Procedures and Tests throughout Hospitalization: Therapy Orders & Screens 07/20/21 05:47 Oxygen NASAL CANNULA 2 lpm Comment: Diagnosis: parkinsons Discharge Exam General Appearance: no apparent distress, alert Neurologic Exam: alert, oriented x 3, cooperative, normal mood/affect, sensation nml, No motor deficits Eye Exam: PERRL, EOMI, eyes nml inspection Ears, Nose, Throat Exam: normal ENT inspection, pharynx normal, moist mucous membranes Neck Exam: normal inspection, non-tender, supple, full range of motion Respiratory Exam: normal breath sounds, lungs clear, No respiratory distress Cardiovascular Exam: regular rate/rhythm, normal heart sounds Gastrointestinal/Abdomen Exam: soft, No tenderness, No mass Pelvic Exam: deferred Rectal Exam: deferred Back Exam: normal inspection, normal range of motion, No CVA tenderness, No ve rtebral tenderness Extremity Exam: normal inspection, normal range of motion Skin Exam: normal color, warm, dry Final Diagnosis/Problem List - Final Discharge Diagnosis/Problem (1) Anti-Parkinsonism drug causing adverse effect in therapeutic use Status: Resolved Code(s): T42.8X5A - ADVERSE EFFECT OF ANTIPARKNS DRUG/CENTR MUSC-TONE DEPR, INIT (2) Parkinsonism Status: Acute Code(s): G20 - PARKINSON'S DISEASE - Discharge Discharge Date: 07/22/21 Disposition: Home, Self-Care Condition: Stable Prescriptions: New Levofloxacin [Levofloxacin 250MG Tablet] 250 mg PO DAILY 5 Days #5 tab Discontinued Gabapentin 600 mg PO TID No Action Levothyroxine Sodium 50 Mcg [Synthroid 50 Mcg] 100 mcg PO DAILY levETIRAcetam [Levetiracetam ER] 750 mg PO BID Duloxetine HCl [Cymbalta] 60 mg PO DAILY Divalproex Sodium [Depakote ER] 500 mg PO TID Propranolol HCl 40 mg PO BID Diclofenac Sodium [Diclofenac Sodium ER] 75 mg PO BID Cholecalciferol (Vitamin D3) [Vitamin D3] 50 mcg PO DAILY Instructions: Urinary Tract Infection, Adult (DC) Additional Instructions: PLEASE CALL FRIDAY TO SCHEDULE A 1 WEEK FOLLOW UP WITH YOUR PRIMARY CARE PROVIDER. CALL JOEY WITH [facility] UPON ARRIVAL TO HOME [phone] Follow up with: JERAMY MONTALVO [ACTIVE STAFF] -
== END 2021-07-22 11:00 | disposition home or self-care (01) | DRG 57 ==
LOC: ED 13:31 → MED SURG 18:00 → OBSVTOIN 07-20 07:00
PROVIDERS: ADMIT Family Medicine; ATTEND Family Medicine
DX: G20 Parkinson's disease (principal); T42.8X5A Adverse effect of antiparkinsonism drugs and other central muscle-tone depressants, initial encounter; R56.9 Unspecified convulsions; E03.9 Hypothyroidism, unspecified; Z79.899 Other long term (current) drug therapy; Z20.828 Contact with and (suspected) exposure to other viral communicable diseases
CPT/HCPCS: 0241U; 36000; 36415; 51702; 71045; 80053; 81001; 82150; 82947; 83605; 83690; 84134; 84484; 85025; 85027; 85610; 87040; 87077; 87086; 87186; 94762; 96365; 96374; 99285; G0378; J0696; J1170; J1956; Q3014; A9270-GY